=== PATIENT | female | born 1945 | race Caucasian/White ===

== ENCOUNTER 2017-04-01 05:36 | Outpatient (CLI) | payer MEDICARE, OTHER ==
[~2017-04-01] VITALS: Ht 172.7 cm; Wt 68.9 kg
[~2017-04-01 05:36] MED LIST: AMLO10TA2 PO; AMLO10TA82 PO; ASP81CT PO; CARV20CP PO; FRSM20T PO; FURO-125 PO; FURO20TA4 PO; HYDR-3812 PO; LEVO112T55 PO; LEVO125T PO; LIOT5TAB3 PO; LOSA100T28 PO; LVT.112T PO; METO-395 PO; MICO90PO TOP; MULT1CAP27 PO; NICO-586 TD; OLME20TA5 PO; OMEG-109 PO; POTA20TA8 PO; SIMV20TA3 PO; WALK1EAC23 MC
[2017-04-01] MEDS ORDERED: ASPI-999 PO (09:25)
== END 2017-04-01 09:31 ==
LOC: PREOP 05:36
PROVIDERS: ATTEND Surgery
DX: Z01.818 Encounter for other preprocedural examination (principal); K57.90 Diverticulosis of intestine, part unspecified, without perforation or abscess without bleeding

== ENCOUNTER 2017-04-07 06:38 | Day surgery (SDC) | payer MEDICARE, OTHER ==
[~2017-04-07] VITALS: Ht 172.7 cm; Wt 68.9 kg
[~2017-04-07 06:38] MED LIST changes: +ASPI-999 PO
--- OUTSIDE RECORDS SUMMARY | 2017-04-07 06:42 | XMS REPORT | Continuity of Care Document ---
Author Author [facility] Organization [facility] Address Unknown Phone Unavailable Allergies Active Description Code Type Severity Reaction Onset Reported/Identified Relationship to Patient Clinical Status Yes NKANo Known Allergies NKA Miscellaneous Allergy Unknown N/A 10/28/2005 Yes No Known Drug Allergies [id number] Drug Allergy Unknown N/A 04/01/2017 Medications There is no data. Problems Date Dx Coded Attending Type Code Diagnosis Diagnosed By 12/02/2010 Ot 244.9 12/02/2010 Ot 401.9 12/02/2010 Ot 414.00 12/02/2010 Ot 425.4 12/02/2010 Ot 426.3 12/02/2010 Ot 785.1 12/02/2010 Ot V58.66 12/02/2010 Ot V58.69 07/15/2014 Ot 397.0 07/15/2014 Ot 401.9 07/15/2014 Ot 424.0 07/15/2014 Ot 427.69 07/15/2014 Ot 428.0 07/15/2014 Ot 786.09 07/15/2014 Ot 426.3 07/15/2014 Ot 428.0 07/15/2014 Ot 780.4 07/15/2014 Ot 785.1 07/28/2014 Ot 397.0 07/28/2014 Ot 401.9 07/28/2014 Ot 424.0 07/28/2014 Ot 427.69 07/28/2014 Ot 428.0 07/28/2014 Ot 786.09 07/28/2014 Ot 426.3 07/28/2014 Ot 428.0 07/28/2014 Ot 780.4 07/28/2014 Ot 785.1 08/08/2014 Ot 397.0 08/08/2014 Ot 401.9 08/08/2014 Ot 424.0 08/08/2014 Ot 427.69 08/08/2014 Ot 428.0 08/08/2014 Ot 786.09 08/08/2014 Ot 426.3 08/08/2014 Ot 428.0 08/08/2014 Ot 780.4 08/08/2014 Ot 785.1 08/08/2014 LUISA PANTOJA, BASHAR J Ot 272.4 08/08/2014 LUISA PANTOJA, BASHAR J Ot 401.9 08/08/2014 LUISA PANTOJA, BASHAR J Ot 414.00 08/08/2014 LUISA PANTOJA, BASHAR J Ot 428.0 08/08/2014 LUISA PANTOJA, BASHAR J Ot 433.10 08/10/2014 LUISA PANTOJA, BASHAR J Ot 272.4 08/10/2014 LUISA PANTOJA, BASHAR J Ot 401.9 08/10/2014 LUISA PANTOJA, BASHAR J Ot 414.00 08/10/2014 LUISA PANTOJA, BASHAR J Ot 428.0 08/10/2014 LUISA PANTOJA, BASHAR J Ot 433.10 08/12/2014 LUISA PANTOJA, BASHAR J Ot 272.4 08/12/2014 LUISA PANTOJA, BASHAR J Ot 401.9 08/12/2014 LUISA PANTOJA, BASHAR J Ot 414.00 08/12/2014 LUISA PANTOJA, JEANHAR J Ot 428.0 08/12/2014 LUISA PANTOJA, BASHAR J Ot 433.10 08/12/2014 LUISA PANTOJA, BASHAR J Ot 272.4 08/12/2014 LUISA PANTOJA, BASHAR J Ot 401.9 08/12/2014 LUISA PANTOJA, JEANHAR J Ot 414.00 08/12/2014 LUISA PANTOJA, BASHAR J Ot 428.0 08/12/2014 LUISA PANTOJA, BASHAR J Ot 433.10 08/19/2014 MARCE HARDY MD Ot 786.05 08/23/2014 LUISA PANTOJA, JEANHAR J Ot 272.4 08/23/2014 LUISA PANTOJA, BASHAR J Ot 401.9 08/23/2014 LUISA PANTOJA, BASHAR J Ot 414.00 08/23/2014 LUISA PANTOJA, BASHAR J Ot 428.0 08/23/2014 LUISA PANTOJA, JEANHAR J Ot 433.10 09/01/2014 LUISA PANTOJA, BASHAR J Ot 272.4 09/01/2014 LUISA PANTOJA, JEANHAR J Ot 305.1 09/01/2014 LUISA PANTOJA, JEANHAR J Ot 401.9 09/01/2014 LUISA PANTOJA, BASHAR J Ot 414.00 09/09/2014 ALEXUS MORAN MD Ot 272.4 09/09/2014 ALEXUS MORAN MD Ot 401.9 09/09/2014 ALEXUS MORAN MD Ot 414.00 09/09/2014 ALEXUS MORAN MD Ot 428.0 09/09/2014 ALEXUS MORAN MD Ot 433.10 09/09/2014 MARCE HARDY MD Ot 305.1 09/19/2014 MARCE HARDY MD Ot 786.05 09/30/2014 ALEXUS MORAN MD Ot 272.4 09/30/2014 ALEXUS MORAN MD Ot 305.1 09/30/2014 ALEXUS MORAN MD Ot 401.9 09/30/2014 ALEXUS MORAN MD Ot 414.00 10/04/2014 MARCE HARDY MD Ot 786.05 10/05/2014 ALEXUS MORAN MD Ot 272.4 10/05/2014 ALEXUS MORAN MD Ot 305.1 10/05/2014 ALEXUS MORAN MD Ot 401.9 10/05/2014 ALEXUS MORAN MD Ot 414.00 10/05/2014 MARCE HARDY MD Ot 305.1 05/29/2015 HENRY POWERS MD Ot M51.16 INTERVERTEBRAL DISC DISORDERS W RADICULO 05/29/2015 HENRY POWERS MD Ot M53.3 SACROCOCCYGEAL DISORDERS, NOT ELSEWHERE 05/29/2015 HENRY POWERS MD Ot Z79.899 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 06/01/2015 Ot M54.5 06/08/2015 Ot M54.5 02/15/2017 ALEXUS MORAN MD Ot 272.4 HYPERLIPIDEMIA NEC/NOS 02/15/2017 ALEXUS MORAN MD Ot 401.9 HYPERTENSION NOS 02/15/2017 ALEXUS MORAN MD Ot 414.00 CORON ATHEROSCLER NOS TYPE VESSEL, NATIV 02/15/2017 ALEXUS MORAN MD Ot 428.0 CONGESTIVE HEART FAILURE NOS 02/15/2017 ALEXUS MORAN MD Ot 433.10 CAROTID ARTERY OCCLUSION W O CEREBRAL IN 02/15/2017 MARCE HARDY MD Ot 305.1 TOBACCO USE DISORDER 02/15/2017 SANDNESS MD, MARCE M Ot 786.05 SHORTNESS OF BREATH 02/15/2017 LUISA PANTOJA, ALEXUS Nichole Ot 272.4 HYPERLIPIDEMIA NEC/NOS 02/15/2017 ALEXUS MORAN MD Ot 305.1 TOBACCO USE DISORDER 02/15/2017 ALEXUS MORAN MD Ot 401.9 HYPERTENSION NOS 02/15/2017 ALEXUS MORAN MD Ot 414.00 CORON ATHEROSCLER NOS TYPE VESSEL, NATIV 02/15/2017 Ot M54.5 LOW BACK PAIN 02/20/2017 JAQUI GUTIERREZ MD Ot 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 02/21/2017 JAQUI GUTIERREZ MD Ot E78.00 PURE HYPERCHOLESTEROLEMIA, UNSPECIFIED 02/21/2017 JAQUI GUTIERREZ MD Ot E83.42 HYPOMAGNESEMIA 02/21/2017 JAQUI GUTIERREZ MD Ot E89.0 POSTPROCEDURAL HYPOTHYROIDISM 02/21/2017 JAQUI GUTIERREZ MD Ot F17.210 NICOTINE DEPENDENCE, CIGARETTES, UNCOMPL 02/21/2017 JAQUI GUTIERREZ MD Ot I10 ESSENTIAL (PRIMARY) HYPERTENSION 02/21/2017 JAQUI GUTIERREZ MD, Ot 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 02/21/2017 JAQUI GUTIERREZ MD Ot Z85.41 PERSONAL HISTORY OF MALIGNANT NEOPLASM O 02/21/2017 JAQUI GUTIERREZ MD Ot Z90.710 ACQUIRED ABSENCE OF BOTH CERVIX AND UTER 02/21/2017 JAQUI GUTIERREZ MD Ot E78.00 PURE HYPERCHOLESTEROLEMIA, UNSPECIFIED 02/21/2017 JAQUI GUTIERREZ MD Ot E83.42 HYPOMAGNESEMIA 02/21/2017 JAQUI GUTIERREZ MD Ot E87.6 HYPOKALEMIA 02/21/2017 JAQUI GUTIERREZ MD Ot E89.0 POSTPROCEDURAL HYPOTHYROIDISM 02/21/2017 JAQUI GUTIERREZ MD Ot F17.210 NICOTINE DEPENDENCE, CIGARETTES, UNCOMPL 02/21/2017 JAQUI GUTIERREZ MD Ot I10 ESSENTIAL (PRIMARY) HYPERTENSION 02/21/2017 JAQUI GUTIERREZ MD Ot 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 02/21/2017 JAQUI GUTIERREZ MD Ot Z80.0 FAMILY HISTORY OF MALIGNANT NEOPLASM OF 02/21/2017 MATT PANTOJA JAQUI Redd Ot Z85.41 PERSONAL HISTORY OF MALIGNANT NEOPLASM O 02/21/2017 MATT PANTOJA, JAQUI Redd Ot Z90.710 ACQUIRED ABSENCE OF BOTH CERVIX AND UTER Procedures Code Description Performed By Performed On [id number] BYPASS DESCENDING COLON TO CUTANEOUS, OP 02/16/2017 [id number] BYPASS DESCENDING COLON TO CUTANEOUS, PE 02/16/2017 [id number] EXCISION OF DESCENDING COLON, OPEN APPRO 02/16/2017 [id number] EXCISION OF SIGMOID COLON , OPEN APPROACH 02/16/2017 [id number] EXCISION OF RECTUM, OPEN APPROACH, DIAGN 02/16/2017 [id number] RESECTION OF SIGMOID COLON , OPEN APPROAC 02/16/2017 [id number] RESECTION OF SIGMOID COLON , PERCUTANEOUS 02/16/2017 Results Test Result Range Complete blood count (CBC) with automated white blood cell (WBC) differential - 02/15/17 13:16 Blood leukocytes automated count (number/volume) 17.7 10*3/uL 4.3-11.0 Blood erythrocytes automated count (number/volume) 4.56 10*6/uL 4.35-5.85 Venous blood hemoglobin measurement (mass/volume) 14.1 g/dL 11.5-16.0 Blood hematocrit (volume fraction) 41 % 35-52 Automated erythrocyte mean corpuscular volume 90 [foz_us] 80-99 Automated erythrocyte mean corpuscular hemoglobin (mass per erythrocyte) 31 pg 25-34 Automated erythrocyte mean corpuscular hemoglobin concentration measurement ( mass/volume) 35 g/dL 32-36 Automated erythrocyte distribution width ratio 13.3 % 10.0-14.5 Automated blood platelet count (count/volume) 216 10*3/uL 130-400 Automated blood platelet mean volume measurement 10.0 [foz_us] 7.4-10.4 Automated blood neutrophils/100 leukocytes 80 % 42-75 Automated blood lymphocytes/100 leukocytes 12 % 12-44 Blood monocytes/100 leukocytes 8 % 0-12 Automated blood eosinophils/100 leukocytes 0 % 0-10 Automated blood basophils/100 leukocytes 0 % 0-10 Blood neutrophils automated count (number/volume) 14.2 10*3 1.8-7.8 Blood lymphocytes automated count (number/volume) 2.1 10*3 1.0-4.0 Blood monocytes automated count (number/volume) 1.4 10*3 0.0-1.0 Automated eosinophil count 0.0 10*3/uL 0.0-0.3 Automated blood basophil count (count/volume) 0.0 10*3/uL 0.0-0.1 Comprehensive metabolic panel - 02/15/17 13:16 Serum or plasma sodium measurement (moles/volume) 135 mmol/L 135-145 Serum or plasma potassium measurement (moles/volume) 3.6 mmol/L 3.6-5.0 Serum or plasma chloride measurement (moles/volume) 102 mmol/L 98-107 Carbon dioxide 23 mmol/L 21-32 Serum or plasma anion gap determination (moles/volume) 10 mmol/L 5-14 Serum or plasma urea nitrogen measurement (mass/volume) 9 mg/dL 7-18 Serum or plasma creatinine measurement (mass/volume) 0.64 mg/dL 0.60-1.30 Serum or plasma urea nitrogen/creatinine mass ratio 14 NRG Serum or plasma creatinine measurement with calculation of estimated glomerular filtration rate > NRG Serum or plasma glucose measurement (mass/volume) 103 mg/dL 70-105 Serum or plasma calcium measurement (mass/volume) 9.7 mg/dL 8.5-10.1 Serum or plasma total bilirubin measurement (mass/volume) 2.0 mg/dL 0.1-1.0 Serum or plasma alkaline phosphatase measurement (enzymatic activity/volume) 80 U/L 40-136 Serum or plasma aspartate aminotransferase measurement (enzymatic activity/ volume) 18 U/L 5-34 Serum or plasma alanine aminotransferase measurement (enzymatic activity/volume ) 20 U/L 0-55 Serum or plasma protein measurement (mass/volume) 7.3 g/dL 6.4-8.2 Serum or plasma albumin measurement (mass/volume) 4.0 g/dL 3.2-4.5 Lipase - 02/15/17 13:16 Lipase 16 U/L 8-78 Blood manual differential performed detection - 02/15/17 13:16 Blood monocytes/100 leukocytes 3 % NRG Manual blood segmented neutrophils/100 leukocytes 90 % NRG Blood band neutrophils/100 leukocytes 0 % NRG Manual blood lymphocytes/100 leukocytes 7 % NRG Manual eosinophils/100 leukocytes in nose 0 % NRG Manual blood basophils/100 leukocytes 0 % NRG Blood erythrocyte morphology finding identification NORMAL NRG Complete urinalysis with reflex to culture - 02/15/17 14:26 Urine color determination YELLOW NRG Urine clarity determination CLEAR NRG Urine pH measurement by test strip 7 5-9 Specific gravity of urine by test strip 1.005 1.016- 1.022 Urine protein assay by test strip, semi-quantitative 1+ NEGATIVE Urine glucose detection by automated test strip NEGATIVE NEGATIVE Erythrocytes detection in urine sediment by light microscopy 4+ NEGATIVE Urine ketones detection by automated test strip 3+ NEGATIVE Urine nitrite detection by test strip NEGATIVE NEGATIVE Urine total bilirubin detection by test strip NEGATIVE NEGATIVE Urine urobilinogen measurement by automated test strip (mass/volume) 1 mg/dL NORMAL Urine leukocyte esterase detection by dipstick 1+ NEGATIVE Automated urine sediment erythrocyte count by microscopy (number/high power field) [HPF] NRG Automated urine sediment leukocyte count by microscopy (number/high power field ) RARE NRG Bacteria detection in urine sediment by light microscopy NEGATIVE NRG Squamous epithelial cells detection in urine sediment by light microscopy 0-2 NRG Crystals detection in urine sediment by light microscopy NONE NRG Casts detection in urine sediment by light microscopy NONE NRG Mucus detection in urine sediment by light microscopy NEGATIVE NRG Complete urinalysis with reflex to culture NO NRG Blood lactic acid measurement (moles/volume) - 02/15/17 14:53 Blood lactic acid measurement (moles/volume) 0.55 mmol/L 0.50-2.00 Bacterial blood culture - 02/15/17 14:53 Bacterial blood culture NG NRG Bacterial blood culture - 02/15/17 15:21 Bacterial blood culture NG NRG Complete blood count (CBC) with automated white blood cell (WBC) differential - 02/16/17 05:15 Blood leukocytes automated count (number/volume) 13.7 10*3/uL 4.3-11.0 Blood erythrocytes automated count (number/volume) 3.98 10*6/uL 4.35-5.85 Venous blood hemoglobin measurement (mass/volume) 12.3 g/dL 11.5-16.0 Blood hematocrit (volume fraction) 36 % 35-52 Automated erythrocyte mean corpuscular volume 92 [foz_us] 80-99 Automated erythrocyte mean corpuscular hemoglobin (mass per erythrocyte) 31 pg 25-34 Automated erythrocyte mean corpuscular hemoglobin concentration measurement ( mass/volume) 34 g/dL 32-36 Automated erythrocyte distribution width ratio 13.2 % 10.0-14.5 Automated blood platelet count (count/volume) 195 10*3/uL 130-400 Automated blood platelet mean volume measurement 10.3 [foz_us] 7.4-10.4 Automated blood neutrophils/100 leukocytes 80 % 42-75 Automated blood lymphocytes/100 leukocytes 12 % 12-44 Blood monocytes/100 leukocytes 8 % 0-12 Automated blood eosinophils/100 leukocytes 0 % 0-10 Automated blood basophils/100 leukocytes 0 % 0-10 Blood neutrophils automated count (number/volume) 10.9 10*3 1.8-7.8 Blood lymphocytes automated count (number/volume) 1.6 10*3 1.0-4.0 Blood monocytes automated count (number/volume) 1.1 10*3 0.0-1.0 Automated eosinophil count 0.0 10*3/uL 0.0-0.3 Automated blood basophil count (count/volume) 0.0 10*3/uL 0.0-0.1 Whole blood basic metabolic panel - 02/16/17 05:15 Serum or plasma sodium measurement (moles/volume) 138 mmol/L 135-145 Serum or plasma potassium measurement (moles/volume) 3.5 mmol/L 3.6-5.0 Serum or plasma chloride measurement (moles/volume) 107 mmol/L 98-107 Carbon dioxide 18 mmol/L 21-32 Serum or plasma anion gap determination (moles/volume) 13 mmol/L 5-14 Serum or plasma urea nitrogen measurement (mass/volume) 8 mg/dL 7-18 Serum or plasma creatinine measurement (mass/volume) 0.55 mg/dL 0.60-1.30 Serum or plasma urea nitrogen/creatinine mass ratio 15 NRG Serum or plasma creatinine measurement with calculation of estimated glomerular filtration rate > NRG Serum or plasma glucose measurement (mass/volume) 66 mg/dL 70-105 Serum or plasma calcium measurement (mass/volume) 8.3 mg/dL 8.5-10.1 THYROID STIMULATING HORMONE - 02/16/17 05:15 THYROID STIMULATING HORMONE 2.85 u[iU]/mL 0.35-4.94 Methicillin resistant Staphylococcus aureus (MRSA) screening culture - 13:00 Methicillin resistant Staphylococcus aureus (MRSA) screening culture NEG NRG Blood type T Indirect antibody screen panel - 02/16/17 13:30 ABO+Rh group AP NRG Transfusion band number [id number] [facility] Blood group antibody screen NEGATIVE [facility] Complete blood count (CBC) with automated white blood cell (WBC) differential - 02/17/17 05:47 Blood leukocytes automated count (number/volume) 13.0 10*3/uL 4.3-11.0 Blood erythrocytes automated count (number/volume) 3.75 10*6/uL 4.35-5.85 Venous blood hemoglobin measurement (mass/volume) 11.6 g/dL 11.5-16.0 Blood hematocrit (volume fraction) 34 % 35-52 Automated erythrocyte mean corpuscular volume 90 [foz_us] 80-99 Automated erythrocyte mean corpuscular hemoglobin (mass per erythrocyte) 31 pg 25-34 Automated erythrocyte mean corpuscular hemoglobin concentration measurement ( mass/volume) 34 g/dL 32-36 Automated erythrocyte distribution width ratio 13.1 % 10.0-14.5 Automated blood platelet count (count/volume) 212 10*3/uL 130-400 Automated blood platelet mean volume measurement 9.6 [foz_us] 7.4-10.4 Automated blood neutrophils/100 leukocytes 86 % 42-75 Automated blood lymphocytes/100 leukocytes 8 % 12-44 Blood monocytes/100 leukocytes 6 % 0-12 Automated blood eosinophils/100 leukocytes 0 % 0-10 Automated blood basophils/100 leukocytes 0 % 0-10 Blood neutrophils automated count (number/volume) 11.1 10*3 1.8-7.8 Blood lymphocytes automated count (number/volume) 1.0 10*3 1.0-4.0 Blood monocytes automated count (number/volume) 0.8 10*3 0.0-1.0 Automated eosinophil count 0.0 10*3/uL 0.0-0.3 Automated blood basophil count (count/volume) 0.0 10*3/uL 0.0-0.1 Whole blood basic metabolic panel - 02/17/17 05:47 Serum or plasma sodium measurement (moles/volume) 138 mmol/L 135-145 Serum or plasma potassium measurement (moles/volume) 3.5 mmol/L 3.6-5.0 Serum or plasma chloride measurement (moles/volume) 105 mmol/L 98-107 Carbon dioxide 21 mmol/L 21-32 Serum or plasma anion gap determination (moles/volume) 12 mmol/L 5-14 Serum or plasma urea nitrogen measurement (mass/volume) 6 mg/dL 7-18 Serum or plasma creatinine measurement (mass/volume) 0.56 mg/dL 0.60-1.30 Serum or plasma urea nitrogen/creatinine mass ratio 11 NRG Serum or plasma creatinine measurement with calculation of estimated glomerular filtration rate > NRG Serum or plasma glucose measurement (mass/volume) 118 mg/dL 70-105 Serum or plasma calcium measurement (mass/volume) 8.4 mg/dL 8.5-10.1 Serum or plasma phosphate measurement (mass/volume) - 02/17/17 05:47 Serum or plasma phosphate measurement (mass/volume) 2.8 mg/dL 2.3-4.7 Magnesium - 02/17/17 05:47 Magnesium 1.4 mg/dL 1.8-2.4 Complete blood count (CBC) with automated white blood cell (WBC) differential - 02/18/17 05:35 Blood leukocytes automated count (number/volume) 14.5 10*3/uL 4.3-11.0 Blood erythrocytes automated count (number/volume) 4.14 10*6/uL 4.35-5.85 Venous blood hemoglobin measurement (mass/volume) 13.0 g/dL 11.5-16.0 Blood hematocrit (volume fraction) 38 % 35-52 Automated erythrocyte mean corpuscular volume 91 [foz_us] 80-99 Automated erythrocyte mean corpuscular hemoglobin (mass per erythrocyte) 31 pg 25-34 Automated erythrocyte mean corpuscular hemoglobin concentration measurement ( mass/volume) 35 g/dL 32-36 Automated erythrocyte distribution width ratio 13.5 % 10.0-14.5 Automated blood platelet count (count/volume) 283 10*3/uL 130-400 Automated blood platelet mean volume measurement 9.6 [foz_us] 7.4-10.4 Automated blood neutrophils/100 leukocytes 82 % 42-75 Automated blood lymphocytes/100 leukocytes 12 % 12-44 Blood monocytes/100 leukocytes 7 % 0-12 Automated blood eosinophils/100 leukocytes 0 % 0-10 Automated blood basophils/100 leukocytes 0 % 0-10 Blood neutrophils automated count (number/volume) 11.9 10*3 1.8-7.8 Blood lymphocytes automated count (number/volume) 1.7 10*3 1.0-4.0 Blood monocytes automated count (number/volume) 1.0 10*3 0.0-1.0 Automated eosinophil count 0.0 10*3/uL 0.0-0.3 Automated blood basophil count (count/volume) 0.0 10*3/uL 0.0-0.1 Whole blood basic metabolic panel - 02/18/17 05:35 Serum or plasma sodium measurement (moles/volume) 138 mmol/L 135-145 Serum or plasma potassium measurement (moles/volume) 4.2 mmol/L 3.6-5.0 Serum or plasma chloride measurement (moles/volume) 104 mmol/L 98-107 Carbon dioxide 26 mmol/L 21-32 Serum or plasma anion gap determination (moles/volume) 8 mmol/L 5-14 Serum or plasma urea nitrogen measurement (mass/volume) 13 mg/dL 7-18 Serum or plasma creatinine measurement (mass/volume) 0.54 mg/dL 0.60-1.30 Serum or plasma urea nitrogen/creatinine mass ratio 24 NRG Serum or plasma creatinine measurement with calculation of estimated glomerular filtration rate > NRG Serum or plasma glucose measurement (mass/volume) 92 mg/dL 70-105 Serum or plasma calcium measurement (mass/volume) 8.3 mg/dL 8.5-10.1 Serum or plasma phosphate measurement (mass/volume) - 02/18/17 05:35 Serum or plasma phosphate measurement (mass/volume) 2.4 mg/dL 2.3-4.7 Magnesium - 02/18/17 05:35 Magnesium 1.8 mg/dL 1.8-2.4 Automated blood complete blood count (hemogram) panel - 02/19/17 05:10 Blood leukocytes automated count (number/volume) 12.5 10*3/uL 4.3-11.0 Blood erythrocytes automated count (number/volume) 4.08 10*6/uL 4.35-5.85 Venous blood hemoglobin measurement (mass/volume) 12.4 g/dL 11.5-16.0 Blood hematocrit (volume fraction) 37 % 35-52 Automated erythrocyte mean corpuscular volume 91 [foz_us] 80-99 Automated erythrocyte mean corpuscular hemoglobin (mass per erythrocyte) 30 pg 25-34 Automated erythrocyte mean corpuscular hemoglobin concentration measurement ( mass/volume) 33 g/dL 32-36 Automated erythrocyte distribution width ratio 13.3 % 10.0-14.5 Automated blood platelet count (count/volume) 316 10*3/uL 130-400 Automated blood platelet mean volume measurement 9.4 [foz_us] 7.4-10.4 Whole blood basic metabolic panel - 02/19/17 05:10 Serum or plasma sodium measurement (moles/volume) 137 mmol/L 135-145 Serum or plasma potassium measurement (moles/volume) 3.6 mmol/L 3.6-5.0 Serum or plasma chloride measurement (moles/volume) 103 mmol/L 98-107 Carbon dioxide 24 mmol/L 21-32 Serum or plasma anion gap determination (moles/volume) 10 mmol/L 5-14 Serum or plasma urea nitrogen measurement (mass/volume) 9 mg/dL 7-18 Serum or plasma creatinine measurement (mass/volume) 0.49 mg/dL 0.60-1.30 Serum or plasma urea nitrogen/creatinine mass ratio 18 NRG Serum or plasma creatinine measurement with calculation of estimated glomerular filtration rate > NRG Serum or plasma glucose measurement (mass/volume) 66 mg/dL 70-105 Serum or plasma calcium measurement (mass/volume) 8.2 mg/dL 8.5-10.1 Automated blood complete blood count (hemogram) panel - 02/20/17 05:05 Blood leukocytes automated count (number/volume) 10.6 10*3/uL 4.3-11.0 Blood erythrocytes automated count (number/volume) 4.09 10*6/uL 4.35-5.85 Venous blood hemoglobin measurement (mass/volume) 12.5 g/dL 11.5-16.0 Blood hematocrit (volume fraction) 37 % 35-52 Automated erythrocyte mean corpuscular volume 91 [foz_us] 80-99 Automated erythrocyte mean corpuscular hemoglobin (mass per erythrocyte) 31 pg 25-34 Automated erythrocyte mean corpuscular hemoglobin concentration measurement ( mass/volume) 34 g/dL 32-36 Automated erythrocyte distribution width ratio 13.2 % 10.0-14.5 Automated blood platelet count (count/volume) 316 10*3/uL 130-400 Automated blood platelet mean volume measurement 9.1 [foz_us] 7.4-10.4 Whole blood basic metabolic panel - 02/20/17 05:05 Serum or plasma sodium measurement (moles/volume) 140 mmol/L 135-145 Serum or plasma potassium measurement (moles/volume) 3.4 mmol/L 3.6-5.0 Serum or plasma chloride measurement (moles/volume) 104 mmol/L 98-107 Carbon dioxide 26 mmol/L 21-32 Serum or plasma anion gap determination (moles/volume) 10 mmol/L 5-14 Serum or plasma urea nitrogen measurement (mass/volume) 6 mg/dL 7-18 Serum or plasma creatinine measurement (mass/volume) 0.51 mg/dL 0.60-1.30 Serum or plasma urea nitrogen/creatinine mass ratio 12 NRG Serum or plasma creatinine measurement with calculation of estimated glomerular filtration rate > NRG Serum or plasma glucose measurement (mass/volume) 77 mg/dL 70-105 Serum or plasma calcium measurement (mass/volume) 8.0 mg/dL 8.5-10.1 Automated blood complete blood count (hemogram) panel - 02/21/17 05:15 Blood leukocytes automated count (number/volume) 11.6 10*3/uL 4.3-11.0 Blood erythrocytes automated count (number/volume) 4.14 10*6/uL 4.35-5.85 Venous blood hemoglobin measurement (mass/volume) 12.6 g/dL 11.5-16.0 Blood hematocrit (volume fraction) 37 % 35-52 Automated erythrocyte mean corpuscular volume 90 [foz_us] 80-99 Automated erythrocyte mean corpuscular hemoglobin (mass per erythrocyte) 30 pg 25-34 Automated erythrocyte mean corpuscular hemoglobin concentration measurement ( mass/volume) 34 g/dL 32-36 Automated erythrocyte distribution width ratio 13.1 % 10.0-14.5 Automated blood platelet count (count/volume) 347 10*3/uL 130-400 Automated blood platelet mean volume measurement 9.0 [foz_us] 7.4-10.4 Whole blood basic metabolic panel - 02/21/17 05:15 Serum or plasma sodium measurement (moles/volume) 139 mmol/L 135-145 Serum or plasma potassium measurement (moles/volume) 3.6 mmol/L 3.6-5.0 Serum or plasma chloride measurement (moles/volume) 104 mmol/L 98-107 Carbon dioxide 22 mmol/L 21-32 Serum or plasma anion gap determination (moles/volume) 13 mmol/L 5-14 Serum or plasma urea nitrogen measurement (mass/volume) 4 mg/dL 7-18 Serum or plasma creatinine measurement (mass/volume) 0.48 mg/dL 0.60-1.30 Serum or plasma urea nitrogen/creatinine mass ratio 8 NRG Serum or plasma creatinine measurement with calculation of estimated glomerular filtration rate > NRG Serum or plasma glucose measurement (mass/volume) 78 mg/dL 70-105 Serum or plasma calcium measurement (mass/volume) 8.5 mg/dL 8.5-10.1 Encounters ACCT No. Visit Date/Time Discharge Status Pt. Type Provider Facility Loc./Unit Complaint [id number] 04/01/2017 05:36:00 04/01/2017 09:31:00 DIS Outpatient MERARY PATEL MD [facility] PREOP COLONOSCOPY [id number] 02/15/2017 14:47:00 02/21/2017 15:00:00 DIS Inpatient MATT PANTOJA, JAQUI Redd [facility] 4TH SIGMOID DIVERTICULITIS W / PERICOLONIC ABSCESS [id number] 05/29/2015 12:10:00 05/29/2015 13:10:00 DIS Outpatient HENRY POWERS MD [facility] CARD DISC DISORDER W/ RADICULOPATHY, SACROCOCCYGEAL DISO [id number] 08/31/2014 13:00:00 08/31/2014 23:59:59 CLS Outpatient ALEXUS MORAN MD [facility] CARD CAD,HTN,HLP [id number] 08/17/2014 11:37:00 08/17/2014 23:59:59 CLS Outpatient MARCE HARDY MD [facility] RT SOA [id number] 08/08/2014 14:19:00 08/08/2014 23:59:59 CLS Outpatient MARCE HARDY MD [facility] RAD POSITIVE TOBACCOISM, SOB [id number] 07/28/2014 10:22:00 07/28/2014 23:59:59 CLS Outpatient ALEXUS MORAN MD [facility] CARD PVD,CHF,ARMANDO [id number] 04/07/2017 10:00:00 PEN Preadmit MERARY PATEL MD [facility] ENDO DIVERTICULAR DISEASE [id number] 05/11/2015 12:19:00 Document Registration [id number] 07/15/2014 13:56:00 Document Registration [id number] 02/06/2011 07:15:00 Document Registration [id number] 12/01/2010 19:05:00 Document Registration
[2017-04-07] MEDS ORDERED: NS IV 500 ML 500 ML IV PRN (06:59)
[2017-04-07] MEDS ORDERED: FLEET ENEMA ADULT 1 EA BTL PR ONE (07:00)
[2017-04-07] MEDS ORDERED: FLEET ENEMA ADULT 1 EA BTL ONE (07:09)
[2017-04-07 07:25] VITALS: BP 137/65
[2017-04-07] MEDS ORDERED: MIDAZOLAM 2 MG/2 ML (VERSED) VIAL ONE ×4 (08:32)
[2017-04-07] MEDS ORDERED: fentaNYL INJECTION 100 MCG/2 ML AMP ONE (08:32)
--- NOTE | 2017-04-07 08:35 | Conscious Sedation/ASA ---
Conscious Sedation Pre-Proced Time Reviewed: 08:35 ASA Class: 2 Airway Mallampati Classification: ([place] appropriate class) I. II. III, IV Lungs Heart ASA score ASA 1: a normal healthy patient ASA 2: a patient with a mild systemic disease (mid diabetes, controlled hypertension, obesity ASA 3: a patient with a severe systemic disease that limits activity (angina , COPD, prior Myocardial infarction) ASA 4: a patient with an incapacitating disease that is a constant threat to life (CHF, renal failure) ASA 5: a moribund patient not expected to survive 24 hrs. (ruptured aneurysm) ASA 6: a declared brain patient whose organs are being harvested. For emergent operations, add the letter E after the classification Grade 1 Sedation Plan: Discussed options with patient/fam Note The patient is an appropriate candidate to undergo the planned procedure, sedation, and anesthesia. The patient immediately re-assessed prior to indication. MERARY PATEL MD Apr 07, 2017 8:35 am
[2017-04-07] MEDS: MIDAZOLAM 2 MG/2 ML (VERSED) VIAL IVP PRN ×4 (08:55→09:14)
[2017-04-07] MEDS: fentaNYL INJECTION 100 MCG/2 ML AMP IVP PRN ×2 (08:56→09:07)
--- NOTE | 2017-04-07 09:25 | Endo Procedure Record ---
Endo Procedure Report Date of Procedure Apr 07, 2017 Surgeon (s) MERARY PATEL MD Post Procedure/Op Diagnosis very few diverticula along the descending colon. Procedure Performed 1.colonoscopy via colostomy 2. Endoscopic examination of rectal stump Description of Procedure Anesthesia Type: Conscious Sedation Specimen(s) collected/removed none Description of the Procedure indication for the procedure: This lady underwent laparoscopic Nelson's procedure to manage perforated sigmoid diverticular disease with peritonitis, in February 2017. She has recovered reasonably. In preparation for reversal of colostomy, she came in for colonoscopy to rule out polyps and to assess the extent of further diverticular disease. Informed consent was obtained after reviewing the procedure in detail. Description of the procedures 1. Colonoscopy via colostomy: She was placed supine on the gurney and conscious sedation achieved using Versed and fentanyl. Digital examination of the colostomy stoma was unremarkable. The colonoscope was then introduced into the colostomy and advanced all the way up to the cecum. It was then withdrawn slowly and the mucosa examined in a systematic fashion. Findings: Very few diverticula along the distal descending colon. No polyps were found 2. Endoscopic examination of the rectal stump: She was then turned into left lateral decubitus position. Examination of the perianal area revealed some external hemorrhoids. Digital examination was unremarkable. The colonoscope was introduced into the rectum to about 15 cm where the stapled end was identified. Apart from inspissated mucus, there was no abnormality She tolerated the procedures well and was taken back to the nursing area in a stable condition Impression: Previous perforated sigmoid diverticular disease. Reversal of colostomy will be scheduled in April 2017. Copies To: JAQUI GUTIERREZ MD, XAVIER M MD Apr 07, 2017 9:24 am
--- NOTE | 2017-04-07 09:27 | Discharge Inst-Simple/Standard ---
Discharge Inst-Standard Discharge Medications New, Converted or Re-Newed RX: Other Patient Instructions/Follow Up Plan of Care/Instructions/FU: please schedule an office visit for April Activity as Tolerated: Yes Discharge Diet: No Restrictions MERARY PATEL MD Apr 07, 2017 9:27 am
[2017-04-07 09:45] VITALS: BP 106/56
[2017-04-07 10:15] VITALS: BP 116/62
[2017-04-07 10:35] VITALS: BP 124/65
== END 2017-04-07 10:40 | disposition home or self-care (01) ==
LOC: ENDO 06:38
PROVIDERS: ATTEND Surgery
DX: K57.30 Diverticulosis of large intestine without perforation or abscess without bleeding (principal); K64.4 Residual hemorrhoidal skin tags; Z93.3 Colostomy status; Z88.5 Allergy status to narcotic agent; Z79.899 Other long term (current) drug therapy; Z79.52 Long term (current) use of systemic steroids; I65.23 Occlusion and stenosis of bilateral carotid arteries; I11.0 Hypertensive heart disease with heart failure; I50.9 Heart failure, unspecified; F17.210 Nicotine dependence, cigarettes, uncomplicated

== ENCOUNTER 2017-05-21 08:42 | Outpatient (CLI) | payer MEDICARE, OTHER ==
[~2017-05-21] VITALS: Ht 172.7 cm; Wt 72.1 kg
[~2017-05-21 08:42] MED LIST changes: +ACHD5005 PO; -HYDR-3812 PO
[2017-05-21 08:52] VITALS: BP 125/74
[2017-05-21] MEDS ORDERED: BUPR150T7 PO (09:04)
[2017-05-21] MEDS ORDERED: L.AC1CAP6 PO (09:04)
[2017-05-21] MEDS ORDERED: POTA20TA15 PO (09:04)
[2017-05-21] MEDS ORDERED: CYAN200014 PO (10:23)
[2017-05-21] MEDS ORDERED: FISH1CAP15 PO (10:23)
== END 2017-05-21 09:15 | disposition home or self-care (01) ==
LOC: PREOP 08:42
PROVIDERS: ATTEND Surgery
DX: Z01.818 Encounter for other preprocedural examination (principal); Z11.2 Encounter for screening for other bacterial diseases; K57.92 Diverticulitis of intestine, part unspecified, without perforation or abscess without bleeding
CPT/HCPCS: 87081

== ENCOUNTER 2017-05-28 06:53 | Inpatient (IN) | payer MEDICARE, OTHER ==
[~2017-05-28] VITALS: Ht 172.7 cm; Wt 72.1 kg
[2017-05-28] VITALS (8 sets, daily range): BP systolic 110–137; BP diastolic 61–72
[~2017-05-28 06:53] MED LIST changes: +BUPR150T7 PO; +CYAN200014 PO; +FISH1CAP15 PO; +L.AC1CAP6 PO; +POTA20TA15 PO
[2017-05-28] MEDS ORDERED: DEXAMETHASONE 10 MG/ML (DECADRON) 1 ML VIAL ONE (07:27)
[2017-05-28] MEDS ORDERED: SEVOFLURANE (ULTANE) 15 ML INHAL SOLN ONE ×14 (07:27→14:35)
[2017-05-28] MEDS ORDERED: LIDOCAINE PF 2% 5 ML (XYLOCAINE) VIAL ONE (07:27)
[2017-05-28] MEDS ORDERED: ONDANSETRON 4 MG/2 ML (SDV) Z0FRAN ONE (07:27)
[2017-05-28] MEDS ORDERED: proPOfol 200 MG/20 ML (DIPRIVAN) VIAL IV ONE (07:27)
[2017-05-28] MEDS ORDERED: ROCURONIUM 50 MG/5 ML (ZEMURON) VIAL IV ONE ×3 (07:27→13:44)
[2017-05-28] MEDS ORDERED: fentaNYL INJECTION 100 MCG/2 ML AMP ONE ×2 (07:27→14:51)
[2017-05-28] MEDS ORDERED: MIDAZOLAM 2 MG/2 ML (VERSED) VIAL ONE (07:27)
[2017-05-28] MEDS ORDERED: ceFAZolin 2 GM/50 ML PRE-MIX IVPB IV ONE (07:45)
[2017-05-28] MEDS ORDERED: metroNIDAZOLE 500MG/100ML IVPB 100 ML IV ONE (07:45)
[2017-05-28] MEDS ORDERED: ceFAZolin 2 GM/50 ML NS 50 ML IV ONE (07:45)
[2017-05-28] MEDS ORDERED: metroNIDAZOLE 500 MG/100 ML IVPB (PRE-MIX) IV ONE (07:45)
--- NOTE | 2017-05-28 07:57 | Progress Note-Pre Operative ---
Pre-Operative Progress Note H&P Reviewed The H&P was reviewed, patient examined and no changes noted. Date Seen by Provider: May 08, 2017 Time Seen by Provider: 11:30 Date H&P Reviewed: May 28, 2017 Time H&P Reviewed: 07:56 Pre-Operative Diagnosis: sigmoid diverticular disease MERARY PATEL MD May 28, 2017 7:57 am
[2017-05-28] MEDS ORDERED: BUPIVACAINE 0.25% 30 ML (SENSORCAINE) VIAL ONE (09:07)
[2017-05-28] MEDS ORDERED: LIDOCAINE/EPI 1%-1:200,000 (XYLOCAINE) 10 ML VIAL ONE (09:07)
[2017-05-28] MEDS: LACTATED RINGERS 1,000 ML IV PRN ×3 (09:20→16:28)
--- OUTSIDE RECORDS SUMMARY | 2017-05-28 10:43 | XMS REPORT | Continuity of Care Document ---
Author Author [facility] Organization [facility] Address Unknown Phone Unavailable Allergies Active Description Code Type Severity Reaction Onset Reported/Identified Relationship to Patient Clinical Status Yes NKANo Known Allergies NKA Miscellaneous Allergy Unknown N/A 10/28/2005 Yes No Known Drug Allergies [id number] Drug Allergy Unknown N/A 04/01/2017 Medications There [...] 05/29/2015 HENRY POWERS MD Ot Z79.899 OTHER CRATE TIER (CURRENT) DRUG THERAPY 06/01/2015 Ot M54.5 06/08/2015 [...] FAMILY HISTORY OF MALIGNANT NEOPLASM OF 02/21/2017 JAQUI GUTIERREZ MD Ot Z85.41 PERSONAL HISTORY OF MALIGNANT NEOPLASM O 02/21/2017 JAQUI GUTIERERZ MD Ot Z90.710 ACQUIRED ABSENCE OF BOTH CERVIX AND UTER 04/07/2017 MERARY PATEL MD Ot K57.90 DVRTCLOS OF INTEST, PART UNSP, W/O PERF 04/07/2017 MERARY PATEL MD Ot Z01.818 ENCOUNTER FOR OTHER PREPROCEDURAL EXAMIN 04/07/2017 MERARY PATEL MD Ot F17.210 NICOTINE DEPENDENCE, CIGARETTES, UNCOMPL 04/07/2017 MERARY PATEL MD Ot I11.0 HYPERTENSIVE HEART DISEASE WITH HEART FA 04/07/2017 MERARY PATEL MD Ot I50.9 HEART FAILURE, UNSPECIFIED 04/07/2017 MERARY PATEL MD Ot I65.23 OCCLUSION AND STENOSIS OF BILATERAL JARQUIN 04/07/2017 MERARY PATEL MD Ot K57.30 DVRTCLOS OF LG INT W/O PERFORATION OR AB 04/07/2017 MERARY PATEL MD Ot K64.4 RESIDUAL HEMORRHOIDAL SKIN TAGS 04/07/2017 MERARY PATEL MD Ot Z79.52 MCC (CURRENT) USE OF SYSTEMIC STER 04/07/2017 MERARY PATEL MD Ot Z79.899 OTHER MCC (CURRENT) DRUG THERAPY 04/07/2017 MERARY PATEL MD Ot Z88.5 ALLERGY STATUS TO NARCOTIC AGENT STATUS 04/07/2017 MERARY PATEL MD Ot Z93.3 COLOSTOMY STATUS 04/08/2017 MERARY PATEL MD Ot F17.210 NICOTINE DEPENDENCE, CIGARETTES, UNCOMPL 04/08/2017 MERARY PATEL MD Ot I11.0 HYPERTENSIVE HEART DISEASE WITH HEART FA 04/08/2017 MERARY PATEL MD Ot I50.9 HEART FAILURE, UNSPECIFIED 04/08/2017 MERARY PATEL MD Ot I65.23 OCCLUSION AND STENOSIS OF BILATERAL JARQUIN 04/08/2017 MERARY PATEL MD Ot K57.30 DVRTCLOS OF LG INT W/O PERFORATION OR AB 04/08/2017 MERARY PATEL MD Ot K64.4 RESIDUAL HEMORRHOIDAL SKIN TAGS 04/08/2017 MERARY PATEL MD Ot Z79.52 CRATE TIER (CURRENT) USE OF SYSTEMIC STER 04/08/2017 MERARY PATEL MD Ot Z79.899 OTHER CRATE TIER (CURRENT) DRUG THERAPY 04/08/2017 MERARY PATEL MD Ot Z88.5 ALLERGY STATUS TO NARCOTIC AGENT STATUS 04/08/2017 MERARY PATEL MD Ot Z93.3 COLOSTOMY STATUS 04/13/2017 MERARY PATEL MD Ot F17.210 NICOTINE DEPENDENCE, CIGARETTES, UNCOMPL 04/13/2017 MERARY PATEL MD Ot I11.0 HYPERTENSIVE HEART DISEASE WITH HEART FA 04/13/2017 MERARY PATEL MD Ot I50.9 HEART FAILURE, UNSPECIFIED 04/13/2017 MERARY PATEL MD Ot I65.23 OCCLUSION AND STENOSIS OF BILATERAL JARQUIN 04/13/2017 MERARY PATEL MD Ot K57.30 DVRTCLOS OF LG INT W/O PERFORATION OR AB 04/13/2017 MERARY PATEL MD Ot K64.4 RESIDUAL HEMORRHOIDAL SKIN TAGS 04/13/2017 MERARY PATEL MD Ot Z79.52 MCC (CURRENT) USE OF SYSTEMIC STER 04/13/2017 MERARY PATEL MD, Ot Z79.899 OTHER MCC (CURRENT) DRUG THERAPY 04/13/2017 MERARY APTEL MD Ot Z88.5 ALLERGY STATUS TO NARCOTIC AGENT STATUS 04/13/2017 MERARY PATEL MD Ot Z93.3 COLOSTOMY STATUS 05/22/2017 MERARY PATEL MD Ot K57.92 DVTRCLI OF INTEST, PART UNSP, W/O PERF O 05/22/2017 MERARY PATEL MD Ot Z01.818 ENCOUNTER FOR OTHER PREPROCEDURAL EXAMIN 05/22/2017 MERARY PATEL MD Ot Z11.2 ENCOUNTER FOR SCREENING FOR OTHER BACTER Procedures Code Description Performed By Performed On [id number] BYPASS DESCENDING COLON TO CUTANEOUS, OP 02/16/2017 [id number] BYPASS DESCENDING COLON TO CUTANEOUS, PE 02/16/2017 [id number] EXCISION OF DESCENDING COLON, OPEN APPRO 02/16/2017 [id number] EXCISION OF SIGMOID COLON , OPEN APPROACH 02/16/2017 [id number] EXCISION OF RECTUM, OPEN APPROACH, DIAGN 02/16/2017 [id number] RESECTION OF SIGMOID COLON , OPEN APPROAC 02/16/2017 [id number] RESECTION OF SIGMOID COLON , PERCUTANEOUS 02/16/2017 [...] resistant Staphylococcus aureus (MRSA) screening culture NEG [facility] Blood type T Indirect antibody screen panel - 02/16/17 13:30 ABO+Rh group AP NRG Transfusion band number [id number] [facility] Blood group antibody screen NEGATIVE [facility] Complete blood count (CBC) with automated white [...] plasma calcium measurement (mass/volume) 8.5 mg/dL 8.5-10.1 Methicillin resistant Staphylococcus aureus (MRSA) screening culture - 09:12 Methicillin resistant Staphylococcus aureus (MRSA) screening culture NEG [facility] Encounters ACCT No. Visit Date/Time Discharge Status Pt. Type Provider Facility Loc./Unit Complaint [id number] 05/21/2017 08:42:00 05/21/2017 09:15:00 DIS Outpatient MERARY PATEL MD [facility] PREOP DIVERTICULAR DISEASE [id number] 04/07/2017 06:38:00 04/07/2017 10:40:00 DIS Outpatient MERARY PATEL MD [facility] ENDO DIVERTICULAR DISEASE [id number] 04/01/2017 05:36:00 04/01/2017 09:31:00 DIS Outpatient MERARY PATEL MD [facility] PREOP COLONOSCOPY [id number] 02/15/2017 14:47:00 02/21/2017 15:00:00 DIS Inpatient JAQUI GUTIERREZ MD [facility] 4TH SIGMOID DIVERTICULITIS W / PERICOLONIC ABSCESS [id number] 05/29/2015 12:10:00 05/29/2015 13:10:00 DIS Outpatient HENRY POWERS MD [facility] CARD DISC DISORDER W/ RADICULOPATHY, SACROCOCCYGEAL DISO [id number] 08/31/2014 13:00:00 08/31/2014 23:59:59 CLS Outpatient ALEXUS MORAN MD [facility] CARD CAD,HTN,HLP [id number] 08/17/2014 11:37:00 08/17/2014 23:59:59 CLS Outpatient MARCE HARDY MD [facility] RT SOA [id number] 08/08/2014 14:19:00 08/08/2014 23:59:59 CLS Outpatient MARCE HARDY MD [facility] RAD POSITIVE TOBACCOISM, SOB [id number] 07/28/2014 10:22:00 07/28/2014 23:59:59 CLS Outpatient ALEXUS MORAN MD [facility] CARD PVD,CHF,ARMANDO [id number] 05/28/2017 06:53:00 ACT Inpatient MERARY PATEL MD [facility] SURG DIVERTICULAR DISEASE [id number] 05/11/2015 12:19:00 Document Registration [id number] 07/15/2014 13:56:00 Document Registration [id number] 02/06/2011 07:15:00 Document Registration [id number] 12/01/2010 19:05:00 Document Registration
[2017-05-28] MEDS ORDERED: ceFAZolin 1,000 MG (ANCEF) VIAL ONE (13:54)
[2017-05-28] MEDS ORDERED: FUROSEMIDE 40 MG/4 ML INJ (LASIX) ONE (14:42)
[2017-05-28] MEDS ORDERED: NEOSTIGMINE (BLOXIVERZ ) 1 MG/1ML 10 ML VIAL ONE (14:46)
[2017-05-28] MEDS ORDERED: GLYCOPYRROLATE 0.2 MG/ML (ROBINUL) 2 ML VIAL ONE ×2 (14:46→15:05)
--- NOTE | 2017-05-28 15:14 | Operative Report ---
Operative Report Date of Procedure/Surgery May 28, 2017 Surgeon (s) MERARY PATEL MD Vehicle Mechanic (s): N/A Post-Operative Diagnosis Same Procedure Performed Robotic assisted reversal of colostomy Mobilization of splenic flexure Lysis of small bowel adhesions Description of Procedure Anesthesia Type: General Estimated blood loss (mL): 100 Specimen(s) collected/removed none Description of the Procedure Indication for the procedure: In January 2017, this lady developed diffuse peritonitis due to perforated sigmoid diverticular disease. She underwent laparoscopic Nelson's procedure with a temporary end colostomy. After adequate preparation and colonoscopy, ruling out other pathology, she returned for reversal of colostomy using minimally invasive technique with robotic assistance. Informed consent was obtained after reviewing the operative details and complications of intra-abdominal abscess, anastomotic leak requiring further stoma formation and cardiorespiratory dysfunction. Description of the procedure: She underwent mechanical bowel preparation including oral antibiotics the day before surgery. She was placed supine on the operating table and general anesthesia induced. A gram of Ancef and 500 mg of Flagyl were administered intravenously as prophylaxis against wound infection. Sequential compression devices were placed around her legs, to minimize the risk of venous thrombosis. A Barbosa catheter was placed to monitor urine output during the perioperative. She was then placed in combined lithotomy position, her legs being supported on stirrups. All the pressure areas were padded and protected. Abdomen was prepared and draped in the usual sterile manner. Pneumoperitoneum was established using a Veress needle introduced into the right and superior aspect of the umbilicus. Intra-abdominal pressure was maintained at 15 mmHg. A 12 mm trocar was placed and anatomy visualized using the high definition, 3- dimensional laparoscope associated with da Ritchie system. Under direct view, I placed a 12 mm trocar over the right lower quadrant, to facilitate using the stapler and 28 mm trocars over the epigastric region in the left upper quadrant respectively. An additional 12 mm trocar was placed between the camera port and the stapler port, to facilitate using a grasper by the ophthalmic assistant. The robotic system was docked in place. Laparoscopic survey confirmed extensive adhesions involving the small bowel to the anterior abdominal wall, left lower quadrant, pelvis and between loops of the small bowel all of these were taken down sharply dissection. Small serosal tear of a loop of bowel over the left lower quadrant was repaired using 3-0 Vicryl sutures with robotic assistance. The rectal stump was displayed and confirmed to be intact with no leak by air insufflation using a rigid proctoscope. Descending colon was then mobilized, continuing her on the splenic flexure, all the way to the mid transverse colon. Subsequently, the anvil of a 25 mm EEA stapler was introduced into the colon beyond the colostomy and the end was stapled close to the anterior abdominal wall. An attached suture was used to hold the spike of the anvil across the staple line. Subsequently, the anvil was docked to the EEA stapler introduced via the rectum and anastomosis made. A small serosal tear along the anterior aspect of the anastomosis was oversewn with 3-0 silk sutures, with the robotic assistance. The integrity of the anastomosis was informed by air insufflation using a rigid proctoscope and temporarily occluding the descending colon. It appeared to be satisfactory. The fascia over the 12 mm incisions was closed using #1 Vicryl. Skin incisions were closed using 4-0 Vicryl, in a subcuticular fashion The stapled remnant of the colostomy was excised and the fascia approximated using no: 2 Prolene sutures. Subcutaneous tissue was approximated with 3-0 , and skin using 4-0 Vicryl. She tolerated the procedure well, was extubated in the operating room and taken to the recovery room in a stable condition. Findings of the Procedure See op report Allergies and Home Medications Allergies Coded Allergies: No Known Drug Allergies (Unverified , 04/01/17) Home Medications Amlodipine Besylate 10 Mg Tablet, 10 MG PO DAILY, (Reported) Aspirin 81 Mg Tab.chew, 81 MG PO DAILY, (Reported) Bupropion HCl 150 Mg Tab.er.24h, 150 MG PO DAILY, (Reported) Cyanocobalamin (Vitamin B-12) 2,000 Mcg Tablet, 2,000 MCG PO DAILY, (Reported) Fish Oil/Dha/Epa 1 Each Capsule, 1,200 MG PO DAILY, (Reported) Furosemide 20 Mg Tablet, 10 MG PO BID, (Reported) take 1/2 of 20mg tab L.acidoph & Paracasei,B.lactis 1 Each Capsule, 1 EACH PO DAILY, (Reported) Levothyroxine Sodium 112 Mcg Tablet, 112 MCG PO DAILY, (Reported) Liothyronine Sodium 5 Mcg Tablet, 5 MCG PO DAILY, (Reported) Losartan Potassium 100 Mg Tablet, 100 MG PO DAILY, (Reported) Metoprolol Succinate 100 Mg Tab.er.24h, 100 MG PO DAILY, (Reported) Potassium Chloride 20 Meq Tab.er.prt, 20 MEQ PO DAILY, (Reported) Simvastatin 20 Mg Tablet, 20 MG PO HS, (Reported) Copy Copies To 1: JAQUI GUTIERREZ MD,MERARY Suh MD May 28, 2017 3:14 pm
[2017-05-28] MEDS ORDERED: ONDANSETRON 4 MG/2 ML (SDV) Z0FRAN IVP PRN ×2 (15:15→15:45)
[2017-05-28] MEDS ORDERED: morphine INJ 10 MG/ML 1ML (SYR OR VIAL) ONE (15:29)
[2017-05-28] MEDS ORDERED: HYDROmorphone (DILAUDID) 2 MG/ML VIAL IVP PRN (15:45)
[2017-05-28] MEDS ORDERED: morphine INJ 10 MG/ML 1ML (SYR OR VIAL) IVP PRN (15:45)
[2017-05-28] MEDS: metroNIDAZOLE 500MG/100ML IVPB 100 ML IV SCH (17:36)
[2017-05-28] MEDS: fentaNYL INJECTION 100 MCG/2 ML AMP IV PRN (17:36)
[2017-05-28] MEDS: LACTATED RINGERS 1,000 ML IV SCH ×2 (18:49→21:08)
[2017-05-28] MEDS: SIMvastatin 20 MG (ZOCOR) TAB PO SCH (21:08)
[2017-05-28] MEDS: ceFAZolin INJECTION 1,000 MG in NS (IVPB) 50 ML IV SCH (21:09)
[2017-05-29] VITALS (15 sets, daily range): BP systolic 119–149; BP diastolic 53–110
[2017-05-29] MEDS: metroNIDAZOLE 500MG/100ML IVPB 100 ML IV SCH (00:57)
[2017-05-29] MEDS: ceFAZolin INJECTION 1,000 MG in NS (IVPB) 50 ML IV SCH (05:01)
[2017-05-29 05:36] LABS: BASOPHILS % (AUTO) 0 % (0-10); EOSINOPHILS % (AUTO) 0 % (0-10); HEMATOCRIT 38 % (35-52); HEMOGLOBIN 13.1 G/DL (11.5-16.0); LYMPHOCYTES # (AUTO) 1.1 X 10^3 (1.0-4.0); LYMPHOCYTES % (AUTO) 10 % (12-44); MEAN CORPUSCULAR HEMOGLOBIN 31 PG (25-34); MEAN CORPUSCULAR HGB CONC 34 G/DL (32-36); MEAN CORPUSCULAR VOLUME 90 FL (80-99); MEAN PLATELET VOLUME 10.9 FL (7.4-10.4); MONOCYTES # (AUTO) 0.7 X 10^3 (0.0-1.0); MONOCYTES % (AUTO) 6 % (0-12); NEUTROPHILS # (AUTO) 9.6 X 10^3 (1.8-7.8); NEUTROPHILS % (AUTO) 84 % (42-75); PLATELET COUNT 192 10^3/uL (130-400); RED BLOOD COUNT 4.28 10^6/uL (4.35-5.85); WHITE BLOOD COUNT 11.4 10^3/uL (4.3-11.0)
[2017-05-29 06:06] LABS: BUN/CREATININE RATIO 20; CALCIUM 8.8 MG/DL (8.5-10.1); CARBON DIOXIDE 23 MMOL/L (21-32); CHLORIDE 107 MMOL/L (98-107); CREATININE SERUM 0.66 MG/DL (0.60-1.30); GFR ESTIMATED > 60; GLUCOSE 109 MG/DL (70-105); POTASSIUM 4.1 MMOL/L (3.6-5.0); SODIUM 139 MMOL/L (135-145)
[2017-05-29] MEDS: MAGNESIUM 1 GM/100 ML IVPB 100 ML IV SCH (06:09)
[2017-05-29] MEDS: POTASSIUM CL 10MEQ/50ML IVPB 50 ML IV SCH (06:09)
[2017-05-29] MEDS: KCL 20 MEQ TAB (K-DUR) PO SCH (06:10)
[2017-05-29] MEDS: LEVOTHYROXINE 112 MCG (LEVOTHROID) TAB PO SCH (06:30)
[2017-05-29] MEDS: fentaNYL INJECTION 100 MCG/2 ML AMP IV PRN ×2 (06:35→18:37)
[2017-05-29] MEDS: LACTATED RINGERS 1,000 ML IV SCH (07:30)
[2017-05-29] MEDS: meTOprolol SUCCINATE 100 MG (TOPROL XL) TAB PO SCH (08:30)
[2017-05-29] MEDS: amLODIPine 10 MG (NORVASC) TAB PO SCH (08:30)
[2017-05-29] MEDS: LOSARTAN 100 MG (COZAAR) TABLET PO SCH (08:30)
--- NOTE | 2017-05-29 09:47 | Progress Note-Standard ---
Standard Progress Note Progress Notes/Assess & Plan Date Seen by Provider: May 29, 2017 Time Seen by Provider: 09:47 Progress/Assessment & Plan Doing well, could be transferred to the floor. Advance diet Final Diagnosis Sigmoid diverticular disease MERARY PATEL MD May 29, 2017 09:47
[2017-05-29] MEDS ORDERED: KETOROLAC 15 MG/ML VIAL IVP ONE (10:00)
[2017-05-29] MEDS ORDERED: INFLUENZA TRIvalent 2017-2018 0.5 ML/45 MCG SYR IM ONE (11:15)
--- NOTE | 2017-05-29 11:25 | Physician Query Clarification ---
PQ-Accidental Op Laceration Admission/Discharge Admission Date: May 28, 2017 at 06:53 Discharge Date: Operative Report: Small serosal tear of a loop of bowel over the left lower quadrant was repaired using 3-0 Vicryl sutures with robotic assistance (during lysis of adhesions) A small serosal tear along the anterior aspect of the anastomosis was oversewn with 3-0 silk sutures, with the robotic assistance (during takedown procedure) Question: Should these serosal tears be classified as: Please document a response below. PHYSICIAN RESPONSE Classified as: Integral to the procedure In responding to this query, please exercise your independent professional judgment. The purpose of this communication is to more accurately reflect the complexity of your patients condition. The fact that a question is asked does not imply that any particular answer is desired or expected. Thank you for your timely response to this clarification. Requestors name: Angely Olivas CCS,[facility] Phone # ext [phone] or [phone] THIS PHYSICIAN QUERY FORM IS A PERMANENT PART OF THE MEDICAL RECORD ANGELY OLIVAS May 29, 2017 11:25 MERARY PATEL MD May 30, 2017 09:55
--- NOTE | 2017-05-29 15:17 | Anesthesia-General Post-Op ---
General Patient Condition Mental Status/LOC: Same as Preop Cardiovascular: Satisfactory Nausea/Vomiting: Absent Respiratory: Satisfactory Pain: Controlled Complications: Absent Post Op Complications Complications None Follow Up Care/Instructions Patient Instructions None needed. Anesthesia/Patient Condition Patient Condition Patient is doing well, no complaints, stable vital signs, no apparent adverse anesthesia problems. No complications reported per nursing. ALYSHA LUNA CRNA May 29, 2017 15:17
[2017-05-29] MEDS: ENOXAPARIN 40 MG/0.4 ML (LOVENOX) SYR SC SCH (17:45)
[2017-05-29] MEDS: SIMvastatin 20 MG (ZOCOR) TAB PO SCH (21:20)
[2017-05-30 00:35] VITALS: BP 146/67
[2017-05-30] MEDS: LACTATED RINGERS 1,000 ML IV SCH (03:23)
[2017-05-30 04:10] VITALS: BP 166/75
[2017-05-30] MEDS: LEVOTHYROXINE 112 MCG (LEVOTHROID) TAB PO SCH (06:04)
[2017-05-30] MEDS: KCL 20 MEQ TAB (K-DUR) PO SCH (06:04)
[2017-05-30] MEDS: MAGNESIUM 1 GM/100 ML IVPB 100 ML IV SCH (06:04)
[2017-05-30] MEDS: POTASSIUM CL 10MEQ/50ML IVPB 50 ML IV SCH (06:05)
--- NOTE | 2017-05-30 08:21 | Consultation ---
History of Present Illness History of Present Illness Patient Consulted On(dior/time) 05/30/17 08:16 Date Seen by Provider: May 30, 2017 Time Seen by Provider: 08:16 Reason for Visit: REVERSAL OF COLOSTOMY History of Present Illness PT IS A 72 Y/O FEMALE WHO HAD OBSTRUCTION OF HER GI TRACT WITH NEED FOR DIVERTING COLOSTOMY TO ALLEVIATE OBSTRUCTION AND ALLOW TIME FOR INFLAMED TISSUE TO HEAL PRIOR TO ATTEMPTING TO RE-ANASTOMOSE THE TISSUE. DR. PATEL TOOK PT FOR REVERSAL SURGERY AND PT IS POST OP DAY #2. Allergies and Home Medications Allergies Coded Allergies: No Known Drug Allergies (Unverified , 04/01/17) Home Medications Amlodipine Besylate 10 Mg Tablet, 10 MG PO DAILY, (Reported) Aspirin 81 Mg Tab.chew, 81 MG PO DAILY, (Reported) Bupropion HCl 150 Mg Tab.er.24h, 150 MG PO DAILY, (Reported) Cyanocobalamin (Vitamin B-12) 2,000 Mcg Tablet, 2,000 MCG PO DAILY, (Reported) Fish Oil/Dha/Epa 1 Each Capsule, 1,200 MG PO DAILY, (Reported) Furosemide 20 Mg Tablet, 10 MG PO BID, (Reported) take 1/2 of 20mg tab L.acidoph & Paracasei,B.lactis 1 Each Capsule, 1 EACH PO DAILY, (Reported) Levothyroxine Sodium 112 Mcg Tablet, 112 MCG PO DAILY, (Reported) Liothyronine Sodium 5 Mcg Tablet, 5 MCG PO DAILY, (Reported) Losartan Potassium 100 Mg Tablet, 100 MG PO DAILY, (Reported) Metoprolol Succinate 100 Mg Tab.er.24h, 100 MG PO DAILY, (Reported) Potassium Chloride 20 Meq Tab.er.prt, 20 MEQ PO DAILY, (Reported) Simvastatin 20 Mg Tablet, 20 MG PO HS, (Reported) Past Dhpvfdh-Kttpas-Qkayex Hx Patient Social History Alcohol Use: Denies Use Recreational Drug Use: No Smoking Status: Current Everyday Smoker Type Used: Cigarettes Recent Foreign Travel: No Contact w/Someone Who Travel: No Recent Hopitalizations: No Immunizations Up To Date Tetanus Booster (TDap): Unknown Seasonal Allergies Seasonal Allergies: No Surgeries History of Surgeries: Yes (BOWEL RESECTION, LEFT ELBOW FX, BACK SX) Surgeries: Hysterectomy Respiratory History of Respiratory Disorde: Yes (wears oxygen at hs) Respiratory Disorders: Sleep Apnea Currently Using CPAP: No Currently Using BIPAP: No Cardiovascular History of Cardiac Disorders: Yes (WAS TOLD HX OF [place]) Cardiac Disorders: Heart Attack, High Cholesterol, Hypertension Neurological History of Neurological Disord: No Reproductive System Hx Reproductive Disorders: No Sexually Transmitted Disease: No HIV/AIDS: No Female Reproductive Disorders: Denies 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 Genitourinary History of Genitourinary Disor: No Gastrointestinal History of Gastrointestinal Di: Yes (COLOSTOMY) Gastrointestinal Disorders: Diverticulosis Musculoskeletal History of Musculoskeletal Dis: Yes (LEFT ELBOW FX ON 04/29/17) Endocrine History of Endocrine Disorders: Yes Endocrine Disorders: Hyperthyroidism HEENT History of HEENT Disorders: No Loss of Vision: Bilateral Cancer History of Cancer: Yes Cancer: Skin, Cervical Type of Tx Receive: Surgical Intervention Psychosocial History of Psychiatric Problem: Yes Behavioral Health Disorders: Anxiety Integumentary History of Skin or Integumenta: No Blood Transfusions History of Blood Disorders: No Adverse Reaction to a Blood Tr: No (N/A) Family Medical History Significant Family History: Heart Disease, Cancer, CVA, Diabetes Family Medial History: Colon cancer 19 MOTHER Completed stroke 19 FATHER Diabetes mellitus 19 FATHER FH: lung cancer G8 BROTHER Myocardial infarction G8 BROTHER Review of Systems-General Constitutional: No chills, No fever, malaise, No weakness EENTM: No hoarseness, No throat swelling Respiratory: No cough, No short of breath Cardiovascular: No chest pain, No palpitations Gastrointestinal: abdominal pain, other (pt reports that she has passed gas) Genitourinary: No frequency Musculoskeletal: No back pain, No muscle weakness Skin: No change in color, No lesions Psychiatric/Neurological: Denies Anxiety, Denies Depressed Physical Exam-General Problems Physical Exam Vital Signs Vital Signs - First Documented 05/28/17 05/28/17 07:53 16:56 Temp 98.9 Pulse 56 Resp 16 B/P (MAP) 130/72 (91) Pulse Ox 98 O2 Delivery Room Air O2 Flow Rate 2.00 Capillary Refill : General Appearance: WD/WN, mild distress (due to abdominal pain) HEENT: PERRL/EOMI, normal ENT inspection, TMs normal, pharynx normal Neck: non-tender, normal inspection Respiratory: chest non-tender, lungs clear, normal breath sounds Cardiovascular: regular rate, rhythm Gastrointestinal: soft, no organomegaly, tenderness (over sugical sites), other (decreased bowel sounds - but they are present) Back: normal inspection Extremities: non-tender, no pedal edema, no calf tenderness Neurologic/Psychiatric: video control engineer II-XII nml as tested, no motor/sensory deficits, alert, normal mood/affect, oriented x 3 Skin: warm/dry Lymphatic: no adenopathy Assessment/Plan Assessment/Plan Admission Diagnosis/Plan POST-OP COLOSTOMY REVERSAL HYPERTENSION HYPERLIPIDEMIA HYPOTHYROIDISM DEPRESSION POST-OP COLOSTOMY REVERSAL - DEFER TO DR. PATEL HYPERTENSION - HOME MEDICATION RESTARTED - MONITOR BLOOD PRESSURE READINGS - ADJUST MEDICATION NEEDED. - I WOULD ANTICIPATE THAT ONCE HER PAIN IS CONTROLLED BETTER THAT HER BLOOD PRESSURE WILL SETTLE DOWN - OUTPATIENT HER BLOOD PRESSURES ARE WELL CONTROLLED. HYPERLIPIDEMIA - RESTART HOME MEDICATION HYPOTHYROIDISM - RESTARTED LEVOTHYROXINE DEPRESSION - BUPROPION ON HOLD - WILL RESTART TODAY. THANK YOU FOR THE CONSULTATION. (DELAY IN CONSULTATION BEING DONE BY 1 DAY DUE TO THIS PROVIDER'S ILLNESS) Clinical Quality Measures DVT/VTE Risk/Contraindication: Risk Factor Score Per Nursin RFS Level Per Nursing on Admit: 4+=Very High JAQUI GUTIERREZ MD May 30, 2017 08:21
[2017-05-30 08:42] VITALS: BP 176/77
[2017-05-30] MEDS: meTOprolol SUCCINATE 100 MG (TOPROL XL) TAB PO SCH (09:31)
[2017-05-30] MEDS: amLODIPine 10 MG (NORVASC) TAB PO SCH (09:32)
[2017-05-30] MEDS: LOSARTAN 100 MG (COZAAR) TABLET PO SCH (09:32)
[2017-05-30] MEDS: buPROPion SR 150 MG (WELLBUTRIN SR) TAB PO SCH ×2 (09:32→20:32)
--- NOTE | 2017-05-30 11:52 | Progress Note-Standard ---
Standard Progress Note Progress Notes/Assess & Plan Date Seen by Provider: May 30, 2017 Time Seen by Provider: 11:05 Progress/Assessment & Plan Doing well, could be transferred to the floor. Advance diet passed flatus and had bowel movements. Reports pain over the epigastric incision. minimal tenderness noticed. Afebrile and vital signs are stable. Encouraged more ambulation Final Diagnosis sigmoid diverticular disease MERARY PATEL MD May 30, 2017 11:52 am
[2017-05-30 12:33] VITALS: BP 153/75
[2017-05-30 16:00] VITALS: BP 139/68
[2017-05-30] MEDS: HYDROcodone/APAP 5 MG/325 MG (LORTAB) TAB PO PRN (16:18)
[2017-05-30] MEDS: ENOXAPARIN 40 MG/0.4 ML (LOVENOX) SYR SC SCH (16:18)
[2017-05-30] MEDS: SIMvastatin 20 MG (ZOCOR) TAB PO SCH (20:32)
[2017-05-31] VITALS: BP 149/72
[2017-05-31] MEDS: HYDROcodone/APAP 5 MG/325 MG (LORTAB) TAB PO PRN ×2 (00:43→20:18)
[2017-05-31] MEDS: LEVOTHYROXINE 112 MCG (LEVOTHROID) TAB PO SCH (05:52)
[2017-05-31 08:00] VITALS: BP 147/70
[2017-05-31] MEDS: amLODIPine 10 MG (NORVASC) TAB PO SCH (08:36)
[2017-05-31] MEDS: meTOprolol SUCCINATE 100 MG (TOPROL XL) TAB PO SCH (08:36)
[2017-05-31] MEDS: buPROPion SR 150 MG (WELLBUTRIN SR) TAB PO SCH ×2 (08:36→20:18)
[2017-05-31] MEDS: LOSARTAN 100 MG (COZAAR) TABLET PO SCH (08:36)
--- NOTE | 2017-05-31 12:04 | Progress Note-Hospitalist ---
Subjective HPI/CC On Admission Date Seen by Provider: May 31, 2017 Time Seen by Provider: 10:00 Subjective/Events-last exam Patient reports passing gas no stool yet tolerating liquids no nausea this morning. She does noted a slightly pruritic as well as stinging eruption on both palms of her hand and under her left breast. She's had no chills or fever with just expected amount of incisional-related abdominal pain. Objective Exam Vital Signs Vital Signs Date Time Temp Pulse Resp B/P (MAP) Pulse Ox O2 Delivery O2 Flow Rate FiO2 05/28/17 07:53 98.9 56 16 130/72 (91) 98 Room Air 05/28/17 16:56 2.00 Capillary Refill : General Appearance: No Apparent Distress, Chronically ill Respiratory: Chest Non Tender, Lungs Clear, Normal Breath Sounds, No Accessory Muscle Use, No Respiratory Distress Cardiovascular: Regular Rate, Rhythm, No Edema, No Gallop, No JVD, No Murmur, Normal Peripheral Pulses Gastrointestinal: Normal Bowel Sounds, No Organomegaly, No Pulsatile Mass, Distended (Mild) Assessment/Plan Assessment and Plan Assess & Plan/Chief Complaint 1. I believe postop day 4 status post colostomy takedown require due to previous diverticulitis. Ileus resolved patient ambulating improving each day. 2. New onset papulovesicular eruption on the palms I suspect relates to some form of allergy versus dyshidrosis from the stress of number 1. I will initiate triamcinolone cream scheduled 3 times a day for now. Ex 3. Hypertension under good control currently DEAN FOSTER MD May 31, 2017 12:04
--- NOTE | 2017-05-31 12:17 | Progress Note-Standard ---
Standard Progress Note Progress Notes/Assess & Plan Date Seen by Provider: May 31, 2017 Time Seen by Provider: 10:20 Progress/Assessment & Plan Doing well, could be transferred to the floor. Advance diet passed flatus and had bowel movements. Reports pain over the epigastric incision. minimal tenderness noticed. Afebrile and vital signs are stable. Encouraged more ambulation continues to improve. Passing flatus and having mucus per rectum. She has developed a rash involving her palms and abdominal wall. Will treat symptomatically. Incisional pain resolved. Could be discharged in 24 hours. Final Diagnosis sigmoid diverticular disease MERARY PATEL MD May 31, 2017 12:17 pm
[2017-05-31] MEDS: TRIAMCINOLONE 0.1% CR (KENALOG) 15 GM TUBE TOP SCH ×2 (13:35→20:18)
[2017-05-31 16:00] VITALS: BP 135/61
[2017-05-31] MEDS: ENOXAPARIN 40 MG/0.4 ML (LOVENOX) SYR SC SCH (17:41)
[2017-05-31] MEDS: SIMvastatin 20 MG (ZOCOR) TAB PO SCH (20:18)
[2017-06-01] VITALS: BP 128/60
[2017-06-01] MEDS: LEVOTHYROXINE 112 MCG (LEVOTHROID) TAB PO SCH (06:00)
[2017-06-01 08:05] VITALS: BP 137/61
[2017-06-01] MEDS: buPROPion SR 150 MG (WELLBUTRIN SR) TAB PO SCH (08:51)
[2017-06-01] MEDS: meTOprolol SUCCINATE 100 MG (TOPROL XL) TAB PO SCH (08:51)
[2017-06-01] MEDS: amLODIPine 10 MG (NORVASC) TAB PO SCH (08:51)
[2017-06-01] MEDS: LOSARTAN 100 MG (COZAAR) TABLET PO SCH (08:51)
[2017-06-01] MEDS: TRIAMCINOLONE 0.1% CR (KENALOG) 15 GM TUBE TOP SCH ×2 (08:51→13:00)
--- NOTE | 2017-06-01 12:09 | Progress Note-Standard ---
Standard Progress Note Progress Notes/Assess & Plan Date Seen by Provider: Jun 01, 2017 Time Seen by Provider: 11:20 Progress/Assessment & Plan Doing well, could be transferred to the floor. Advance diet passed flatus and had bowel movements. Reports pain over the epigastric incision. minimal tenderness noticed. Afebrile and vital signs are stable. Encouraged more ambulation continues to improve. Passing flatus and having mucus per rectum. She has developed a rash involving her palms and abdominal wall. Will treat symptomatically. Incisional pain resolved. Could be discharged in 24 hours. Rash unchanged. Passed normal stools. Afebrile with normal vitals. Could be discharged home Final Diagnosis Sigmoid diverticular disease MERARY PATEL MD Jun 01, 2017 12:09 pm
--- NOTE | 2017-06-01 12:13 | Discharge Summary ---
Diagnosis/Chief Complaint Date of Admission May 28, 2017 at 6:53 am Date of Discharge 06/01/17 Discharge Date: Jun 01, 2017 Discharge Time: 12:09 Admission Diagnosis Admission Diagnosis Sigmoid diverticular disease Discharge Diagnosis Same Reason Hospital Visit To undergo an elective reversal of colostomy using minimally invasive technique with robotic assistance. Discharge Summary Procedures Robotic assisted reversal of colostomy; Satisfactory recovery, tolerating diet and bowel function resumed. Developed rashes involving the palm of her hands and around the trocar sites. Managed with topical steroids and benadryl. F/U in [address] Patti Germain for medical management Discharge Physical Examination Allergies: Coded Allergies: No Known Drug Allergies (Unverified , 04/01/17) Vitals & I&Os Vital Signs Date Time Temp Pulse Resp B/P (MAP) Pulse Ox O2 Delivery O2 Flow Rate FiO2 06/01/17 08:05 98.4 62 14 137/61 (86) 94 Room Air 05/28/17 23:05 2.00 Hospital Course Labs (last 24 hrs) Laboratory Tests 05/29/17 04:50: White Blood Count 11.4H, Red Blood Count 4.28L, Hemoglobin 13.1, Hematocrit 38, Mean Corpuscular Volume 90, Mean Corpuscular Hemoglobin 31, Mean Corpuscular Hemoglobin Concent 34, Red Cell Distribution Width 14.0, Platelet Count 192, Mean Platelet Volume 10.9H, Neutrophils (%) (Auto) 84H, Lymphocytes (%) (Auto) 10L, Monocytes (%) (Auto) 6, Eosinophils (%) (Auto) 0, Basophils (%) (Auto) 0, Neutrophils # (Auto) 9.6H, Lymphocytes # (Auto) 1.1, Monocytes # (Auto) 0.7, Eosinophils # (Auto) 0.0, Basophils # (Auto) 0.0, Sodium Level 139, Potassium Level 4.1, Chloride Level 107, Carbon Dioxide Level 23, Anion Gap 9, Blood Urea Nitrogen 13, Creatinine 0.66, Estimat Glomerular Filtration Rate > 60, BUN/ Creatinine Ratio 20, Glucose Level 109H, Calcium Level 8.8 Pending Labs Laboratory Tests 05/29/17 04:50: White Blood Count 11.4, Red Blood Count 4.28, Hemoglobin 13.1, Hematocrit 38, Mean Corpuscular Volume 90, Mean Corpuscular Hemoglobin 31, Mean Corpuscular Hemoglobin Concent 34, Red Cell Distribution Width 14.0, Platelet Count 192, Mean Platelet Volume 10.9, Neutrophils (%) (Auto) 84, Lymphocytes (%) (Auto) 10 , Monocytes (%) (Auto) 6, Eosinophils (%) (Auto) 0, Basophils (%) (Auto) 0, Neutrophils # (Auto) 9.6, Lymphocytes # (Auto) 1.1, Monocytes # (Auto) 0.7, Eosinophils # (Auto) 0.0, Basophils # (Auto) 0.0, Sodium Level 139, Potassium Level 4.1, Chloride Level 107, Carbon Dioxide Level 23, Anion Gap 9, Blood Urea Nitrogen 13, Creatinine 0.66, Estimat Glomerular Filtration Rate > 60, BUN/ Creatinine Ratio 20, Glucose Level 109, Calcium Level 8.8 Discharge Home Medications: Active Scripts Active Reported Fish Oil 1,200 mg Fish Oil (Fish Oil/Dha/Epa) 1 Each Capsule 1,200 Mg PO DAILY Vitamin B-12 (Cyanocobalamin (Vitamin B-12)) 2,000 Mcg Tablet 2,000 Mcg PO DAILY Bupropion Xl (Bupropion HCl) 150 Mg Tab.er.24h 150 Mg PO DAILY Probiotic (L.acidoph & Paracasei,B.lactis) 1 Each Capsule 1 Each PO DAILY Potassium Chloride 20 Meq Tab.er.prt 20 Meq PO DAILY Aspirin 81 Mg Tab.chew 81 Mg PO DAILY Losartan Potassium 100 Mg Tablet 100 Mg PO DAILY Furosemide 20 Mg Tablet 10 Mg PO BID take 1/2 of 20mg tab Amlodipine Besylate 10 Mg Tablet 10 Mg PO DAILY Liothyronine Sodium 5 Mcg Tablet 5 Mcg PO DAILY Levothyroxine Sodium 112 Mcg Tablet 112 Mcg PO DAILY Metoprolol Succinate 100 Mg Tab.er.24h 100 Mg PO DAILY Simvastatin 20 Mg Tablet 20 Mg PO HS Instructions to patient/family Please see electronic discharge instructions given to patient. Clinical Quality Measures DVT/VTE Risk/Contraindication: Risk Factor Score Per Nursin RFS Level Per Nursing on Admit: 4+=Very High MERARY PATEL MD Jun 01, 2017 12:13 pm
--- NOTE | 2017-06-01 12:30 | Discharge Inst-Simple/Standard ---
Discharge Inst-Standard Discharge Medications New, Converted or Re-Newed RX: Other Patient Instructions/Follow Up Plan of Care/Instructions/FU: Steroid cream to rash. To use vicodin, that she has at home. F/U in 2 weeks Activity as Tolerated: Yes Discharge Diet: No Restrictions, Soft Diet Planned Outpatient Orders/Ref. Pneu Vac Indicated: Yes MERARY PATEL MD Jun 01, 2017 12:30 pm
[2017-06-01] MEDS ORDERED: TRIAMCINOLONE 0.1% CR (KENALOG) 15 GM TUBE TOP SCH (12:45)
[2017-06-01] MEDS ORDERED: TR1C15 TP (13:04)
== END 2017-06-01 13:40 | disposition home or self-care (01) | DRG 346 ==
LOC: 4TH 06:53 → SURG 06:54 → ICU 16:38 → 4TH 05-29 12:29
PROVIDERS: ADMIT Surgery; ATTEND Surgery
PROC: 8E0W4CZ Robotic Assisted Procedure of Trunk Region, Percutaneous Endoscopic Approach (ICD-10-PCS; 2017-05-28)
PROC: 0DSM4ZZ Reposition Descending Colon, Percutaneous Endoscopic Approach (ICD-10-PCS; principal; 2017-05-28 09:20)
DX: Z43.3 Encounter for attention to colostomy (principal); Z87.19 Personal history of other diseases of the digestive system; F17.210 Nicotine dependence, cigarettes, uncomplicated; I10 Essential (primary) hypertension; E78.00 Pure hypercholesterolemia, unspecified; E78.5 Hyperlipidemia, unspecified; E03.9 Hypothyroidism, unspecified; I25.2 Old myocardial infarction; R21 Rash and other nonspecific skin eruption; F41.9 Anxiety disorder, unspecified; F32.9 Major depressive disorder, single episode, unspecified; Z85.41 Personal history of malignant neoplasm of cervix uteri; Z85.828 Personal history of other malignant neoplasm of skin
CPT/HCPCS: 36415; 80048; 85025; 94664

== ENCOUNTER → 2021-02-13 | Outpatient (CLI) | payer MEDICARE, OTHER ==
[~2021-02-13] MED LIST changes: +AMLO-251 PO; -AMLO10TA2 PO; +BUPR150T24 PO; -BUPR150T7 PO; +LIOT5TAB10 PO; -LIOT5TAB3 PO; -LOSA100T28 PO; +LOSA100T57 PO; -METO-395 PO; +MTP100TCR PO; +SIMV20TA26 PO; -SIMV20TA3 PO; +TR1C15 TP
--- NOTE | 2021-02-13 10:33 | Diagnostic Imaging Report ---
CT Lung Screening INDICATION:Screening for lung cancer, 40 pack year history of smoking TECHNIQUE: Noncontrast, low-dose CT imaging performed according to the lung cancer screening protocol. Auto Exposure Controls were utilize during the CT exam to meet ALARA standards for radiation dose reduction. COMPARISON:08/08/2014 FINDINGS:A few calcified mediastinal and hilar lymph nodes are present. No pathologically enlarged lymph nodes within the chest. Scattered vascular calcifications, including within the coronary arteries without aneurysmal dilatation of thoracic aorta. The heart is borderline enlarged. No significant pericardial effusion. No pleural effusion. Minimal secretions identified within the airway extending into the right lower lobe bronchus. No pneumothorax. Mild background paraseptal and centrilobular emphysematous changes. 0.5 x 0.4 cm sub-solid left upper lobe pulmonary nodule, series 2, image 33. Innumerable additional bilateral subzero 0.4 cm pulmonary nodules. A new 1.0 x 0.9 x 0.4 cm solid pleural-based pulmonary nodule is noted within the medial aspect of the left upper lobe abutting the aortic arch, series 2, image 66 and series 602 image 36. A new irregular 0.6 x 0.5 x 0.5 cm right upper lobe pulmonary nodule, series 2, image 52. Additional new 0.5 x 0.5 cm solid right upper lobe pulmonary nodule, series 2, image 57. A few calcified granuloma are present. New solid 0.5 cm right middle lobe pulmonary nodule. Mild bibasilar scarring and/or atelectasis, greatest within the lingula and right middle lobe. Calcified splenic granuloma. Otherwise, the partially visualized upper abdomen is unremarkable. Scattered osseous degenerative changes without acute osseous abnormality. IMPRESSION:New average diameter 0.8 cm solid left upper lobe pulmonary nodule. Multiple bilateral sub-0.6 cm solid pulmonary nodules. These are indeterminate, though many are new from the prior examination. This includes a new irregular right upper lobe pulmonary nodule. Evidence of chronic granulomatous disease. Mild background emphysematous changes. LUNG-RADS CATEGORY:4AS: Probably suspicious MODIFIER: S: Mild background emphysematous changes and evidence of chronic granulomatous disease. FOLLOWUP: Low-dose CT of the chest is recommended in 3 months to reevaluate the new pulmonary nodules as described above. Dictated by: Dictated on workstation # [id number]
== END ==
LOC: RAD 10:15
PROVIDERS: ATTEND Nurse Practitioner Family
DX: Z12.2 Encounter for screening for malignant neoplasm of respiratory organs (principal); J43.9 Emphysema, unspecified; R91.8 Other nonspecific abnormal finding of lung field; D71 Functional disorders of polymorphonuclear neutrophils; F17.210 Nicotine dependence, cigarettes, uncomplicated
CPT/HCPCS: 71271

== ENCOUNTER → 2022-05-20 | Outpatient (CLI) | payer MEDICARE, OTHER ==
[~2022-05-20] MED LIST changes: +POTA-169 PO; +POTA-179 PO; -POTA20TA15 PO; -POTA20TA8 PO
--- NOTE | 2022-05-20 13:04 | Diagnostic Imaging Report ---
PROCEDURE: CT sinuses without contrast TECHNIQUE: Multiple contiguous axial images were obtained through the sinuses without the use of intravenous contrast. Coronal and sagittal reformations were then performed. Auto Exposure Controls were utilized during the CT exam to meet ALARA standards for radiation dose reduction. INDICATION: Sinus congestion, head pain, and ringing in the ears. COMPARISON: No priors. FINDINGS: There is very mild rightward nasal septal deviation. No substantial spurring. The turbinates are unremarkable. The maxillary sinus ostia are widely patent. The ostiomeatal units and infundibula are unremarkable. The maxillary, ethmoid, and frontal sinuses as well as sphenoids are all clear. There is no mastoid effusion. The middle ear cavities are clear. Frontal sinuses are normal. The orbital contents are unremarkable. No facial fracture. No membrane thickening, air-fluid level, ostial obstruction, or bony destruction. IMPRESSION: Clear paranasal sinuses. Dictated by: Dictated on workstation # [id number]
== END ==
LOC: RAD 11:28
PROVIDERS: ATTEND Nurse Practitioner Family
DX: R09.81 Nasal congestion (principal); R51.9 Headache, unspecified; H93.13 Tinnitus, bilateral
CPT/HCPCS: 70486